=== PATIENT | female | born 1945 | race Caucasian/White ===

== ENCOUNTER 2020-10-26 17:30 | Inpatient (IN) | payer MEDICARE, SELFPAY ==
[2020-10-26 18:16] VITALS: PULSE 80; RESP 18; O2SAT 98; BMI 27.6
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
[2020-10-26 20:30] VITALS: BP 122/52; BP 137/38; PULSE 68; PULSE 69
[2020-10-26] MEDS: MELATONIN 3 MG TABLET PO (21:49)
[2020-10-26] MEDS: Gabapentin 300 MG Capsule PO (21:49)
[2020-10-26] MEDS: cloNIDine HCl 0.1 MG Tablet PO (21:50)
[2020-10-26] MEDS: QUEtiapine 25 MG Tablet PO (21:50)
[2020-10-27 06:45] LABS: Absolute Lymphocyte Count 1.86 X10^3/uL (0.83-4.51); Absolute Neutrophil Count 2.7 X10^3/uL (2.0-7.7); Basophil# 0.03 X10^3/uL; Basophil% 0.5 % (0-1); Eosinophil# 0.24 X10^3/uL; Eosinophils% 4.4 % (0-5); Hematocrit 33.9 % (37-47); Hemoglobin 10.6 g/dL (12.0-15.0); Lymphocyte # 1.86 X10^3/ul (0.83-4.51); Lymphocyte % 33.9 % (19-41); Mean Corp Hgb Conc 31.3 g/dL (32-36); Mean Corpuscular Volume 92.9 fL (81-99); Mean Platelet Vol. 10.2 fl (6.2-12.0); Monocyte# 0.63 X10^3/uL; Monocyte% 11.5 % (0-10); NRBC Flagged by Analyzer 0 % (0-5); Neutrophil % 49.3 % (47-70); Platelet Count 367 K/mm3 (150-450); RBC Distribution Width CV 14.1 % (11.6-14.6); RBC Distribution Width SD 47.8 fl (35.1-43.9); Red Blood Count 3.65 M/mm3 (4.2-5.4); White Blood Count 5.5 K/mm3 (4.4-11.0)
[2020-10-27] MEDS: Aspirin 81 MG TAB.CHEW PO (07:02)
[2020-10-27] MEDS: Enoxaparin 30 MG/0.3 ML Syringe SC (07:02)
[2020-10-27] MEDS: Senna/Docusate Sodium 1 Tablet PO ×2 (07:02→17:23)
[2020-10-27] MEDS: Atorvastatin Calcium 20 MG Tablet PO (07:02)
[2020-10-27] MEDS: Gabapentin 300 MG Capsule PO ×3 (07:02→21:02)
[2020-10-27] MEDS: Pantoprazole Sodium 40 MG Tablet PO (07:02)
[2020-10-27] MEDS: Nystatin Powder 15gm Bottle 1 APPLIC TOPICAL ×2 (07:03→17:24)
[2020-10-27] MEDS: Polyethylene Glycol 3350 17 GM PACKET PO (07:04)
[2020-10-27] MEDS: Multivitamins,Ther W-Minerals Tablet 2 TABLET PO (07:05)
--- NOTE | 2020-10-27 07:40 | NURSING ---
Ensure not ordered, pt states she can only drink water, nothing else.
[2020-10-27 07:46] LABS: Anion Gap 8 (5-15); BUN 16 mg/dL (7-18); Calcium,Total 8.8 mg/dL (8.5-10.1); Chloride 107 mmol/L (98-107); Creatinine, Serum 0.89 mg/dL (0.55-1.02); EST Glomerular Filtration Rate 66 mL/min (>60); Est Glom Filt Rate - Afr Amer 80 mL/min (>60); Estimated Creatinine Clearance 43.86 ml/min; Glucose 105 mg/dL (74-106); Potassium 3.3 mmol/L (3.5-5.1); Sodium Level 140 mmol/L (136-145)
[2020-10-27] MEDS: Mag Hydrox/Al Hydrox/Simeth 30 ML UDC PO (10:40)
[2020-10-27] MEDS: Potassium Chloride Oral Tablet 20 MEQ PO (11:34)
[2020-10-27] MEDS: Tuberculin,Purif.prot.deriv. 50 TU/ML Vial 5 ML ID (11:34)
[2020-10-27] MEDS: cloNIDine HCl 0.1 MG Tablet PO ×2 (14:28→21:02)
[2020-10-27 14:29] VITALS: BP 126/50; PULSE 74; RESP 16; TEMP 36.9; O2SAT 95
--- NOTE | 2020-10-27 15:14 | NURSING ---
Spoke with pt and spouse, they both stated pt takes Vit D3 50,000 units every 10 days, not every week. Dr. Starkey notified.
[2020-10-27] MEDS: Carvedilol 25 MG Tablet PO (17:23)
[2020-10-27] MEDS: Lacosamide 100 MG Tablet PO (17:23)
[2020-10-27] MEDS: MELATONIN 3 MG TABLET PO (21:02)
[2020-10-27] MEDS: QUEtiapine 25 MG Tablet PO (21:02)
--- NOTE | 2020-10-28 01:17 | NURSING ---
Pt taken to bathroom per COMPUTER ANALYST SUPERVISOR. Unable to get oob without assist compared to ability to complete position change from lying to sitting with supervision earlier in the shift. Gait unsteady, poor coordination, mod to max cueing required when ambulating to bathroom.
[2020-10-28 05:16] VITALS: BP 125/56; PULSE 60; RESP 16; TEMP 36.7; O2SAT 94
[2020-10-28] MEDS: Gabapentin 300 MG Capsule PO ×3 (05:20→21:03)
[2020-10-28] MEDS: Nystatin Powder 15gm Bottle 1 APPLIC TOPICAL ×2 (05:20→16:52)
[2020-10-28] MEDS: Lisinopril 10 MG Tablet PO (05:21)
[2020-10-28] MEDS: Pantoprazole Sodium 40 MG Tablet PO (05:21)
[2020-10-28] MEDS: Atorvastatin Calcium 20 MG Tablet PO (05:21)
[2020-10-28] MEDS: Senna/Docusate Sodium 1 Tablet PO ×2 (05:21→16:49)
[2020-10-28] MEDS: cloNIDine HCl 0.1 MG Tablet PO ×2 (05:21→21:03)
[2020-10-28] MEDS: Enoxaparin 30 MG/0.3 ML Syringe SC (05:21)
[2020-10-28] MEDS: Polyethylene Glycol 3350 17 GM PACKET PO (05:22)
[2020-10-28] MEDS: Carvedilol 25 MG Tablet PO ×2 (05:23→16:49)
[2020-10-28] MEDS: Lacosamide 100 MG Tablet PO ×2 (05:26→16:52)
[2020-10-28 06:02] LABS: Anion Gap 5 (5-15); BUN 15 mg/dL (7-18); BUN/Creat Ratio 19.6 RATIO (10-20); Calcium,Total 8.5 mg/dL (8.5-10.1); Chloride 109 mmol/L (98-107); Creatinine, Serum 0.77 mg/dL (0.55-1.02); EST Glomerular Filtration Rate 78 mL/min (>60); Est Glom Filt Rate - Afr Amer 95 mL/min (>60); Estimated Creatinine Clearance 39.04 ml/min; Glucose 96 mg/dL (74-106); Potassium 3.6 mmol/L (3.5-5.1); Sodium Level 141 mmol/L (136-145)
--- NOTE | 2020-10-28 07:01 | NURSING ---
Addendum entered by Mini Frederick 10/28/20 07:27: Called to update on pt. Addendum entered by Norma Crystal 10/28/20 07:08: Report given to ER nurse, Minal. Original Note: Called to pt's bathroom- became unresponsive. Verbal stimulation ineffective to arouse pt. Vitals obtained- BP 104/65, P- 89. Radial pulse to rt arm thready. Color dodson, ashen. Skin moist. Upper extremities flaccid. Few jerking motions noted to upper body. Rapid response called. Three fuel cell test engineer and a physician present. Symptoms have not improved. Pt transported to ER per ORNAMENTAL METAL WORKER APPRENTICE. Report given to Maxwell
[2020-10-28 07:05] LABS: Bedside Glucose 137 mg/dL (70-110)
[2020-10-28 07:10] VITALS: BP 104/65; PULSE 89
[2020-10-28 10:00] VITALS: PULSE 69; O2SAT 92
[2020-10-28] MEDS: Aspirin 81 MG TAB.CHEW PO (13:49)
[2020-10-28] MEDS: Multivitamins,Ther W-Minerals Tablet 2 TABLET PO (13:49)
--- NOTE | 2020-10-28 14:17 | NURSING ---
Pt came back from ER with new order for Keflex q6hrs for UTI. Pt A&Ox3 pleasant, talkative and cooperative with care.
[2020-10-28 14:20] VITALS: BP 107/33; PULSE 69; RESP 18; TEMP 36.7; O2SAT 92
[2020-10-28] MEDS: Cephalexin 500 MG Capsule PO ×2 (16:48→23:38)
[2020-10-28] MEDS: Mag Hydrox/Al Hydrox/Simeth 30 ML UDC PO (16:52)
[2020-10-28] MEDS: Ondansetron ODT 4 MG Tablet PO (20:58)
[2020-10-28] MEDS: Acetaminophen 500 MG Tablet 1000 MG PO (21:03)
[2020-10-28] MEDS: MELATONIN 3 MG TABLET PO (21:03)
[2020-10-28] MEDS: QUEtiapine 25 MG Tablet PO (21:03)
[2020-10-28 21:04] VITALS: BP 124/53; PULSE 70; RESP 18; O2SAT 95
[2020-10-29 06:20] VITALS: BP 146/48; PULSE 61; RESP 18; TEMP 36.9; O2SAT 91
[2020-10-29] MEDS: cloNIDine HCl 0.1 MG Tablet PO ×3 (06:28→22:32)
[2020-10-29] MEDS: Carvedilol 25 MG Tablet PO ×2 (06:28→17:36)
[2020-10-29] MEDS: Cephalexin 500 MG Capsule PO ×4 (06:28→23:00)
[2020-10-29] MEDS: Atorvastatin Calcium 20 MG Tablet PO (06:29)
[2020-10-29] MEDS: Senna/Docusate Sodium 1 Tablet PO ×2 (06:29→17:36)
[2020-10-29] MEDS: Nystatin Powder 15gm Bottle 1 APPLIC TOPICAL ×2 (06:29→17:36)
[2020-10-29] MEDS: Gabapentin 300 MG Capsule PO ×3 (06:29→22:32)
[2020-10-29] MEDS: Enoxaparin 30 MG/0.3 ML Syringe SC (06:29)
[2020-10-29] MEDS: Pantoprazole Sodium 40 MG Tablet PO (06:29)
[2020-10-29] MEDS: Lacosamide 100 MG Tablet PO ×2 (06:30→17:42)
[2020-10-29] MEDS: Lisinopril 10 MG Tablet PO (06:30)
[2020-10-29] MEDS: Acetaminophen 500 MG Tablet 1000 MG PO ×2 (06:30→20:12)
[2020-10-29] MEDS: Ondansetron ODT 4 MG Tablet PO ×2 (06:31→19:16)
[2020-10-29] MEDS: Multivitamins,Ther W-Minerals Tablet 2 TABLET PO (08:32)
[2020-10-29] MEDS: Aspirin 81 MG TAB.CHEW PO (08:32)
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
[2020-10-29 14:23] VITALS: BP 172/62; PULSE 65; RESP 14; TEMP 36.4; O2SAT 96
[2020-10-29] MEDS: Mag Hydrox/Al Hydrox/Simeth 30 ML UDC PO (19:53)
[2020-10-29 22:30] VITALS: BP 141/54; PULSE 60; RESP 17; O2SAT 93
[2020-10-29] MEDS: MELATONIN 3 MG TABLET PO (22:31)
[2020-10-29] MEDS: QUEtiapine 25 MG Tablet PO (22:32)
[2020-10-30] MEDS: Enoxaparin 30 MG/0.3 ML Syringe SC (04:56)
[2020-10-30] MEDS: Pantoprazole Sodium 40 MG Tablet PO (04:57)
[2020-10-30] MEDS: Nystatin Powder 15gm Bottle 1 APPLIC TOPICAL ×2 (04:58→17:05)
[2020-10-30 05:02] VITALS: BP 93/46; PULSE 60; RESP 16; TEMP 36.4; O2SAT 93
--- NOTE | 2020-10-30 05:06 | NURSING ---
pT REFUSED AM MEDS. PT SAID WE ARE TRYING TO POISON HER. ATTEMPTED TO EDUCATED PT AND SHOW HER THE MEDS WRAPPERS BUT STILL REFUSED.
--- NOTE | 2020-10-30 05:09 | NURSING ---
PT REFUSED HER MEDS THIS AM
[2020-10-30] MEDS: Multivitamins,Ther W-Minerals Tablet 2 TABLET PO (07:45)
[2020-10-30] MEDS: Aspirin 81 MG TAB.CHEW PO (07:45)
--- NOTE | 2020-10-30 08:00 | PCM.PN.RX ---
Progress Note - Pharmacy Subjective: TCU Admission Objective: Allergies acetaminophen [From Percocet] Allergy (Verified 10/28/20 07:06) Other amlodipine Allergy (Verified 10/28/20 07:06) Upset Stomach amoxicillin Allergy (Verified 10/28/20 07:06) Diarrhea metoclopramide Allergy (Verified 10/28/20 07:06) Upset Stomach oxycodone [From Percocet] Allergy (Verified 10/28/20 07:06) Other carvedilol Adverse Reaction (Verified 10/28/20 07:06) Shortness of breath Current Medications Generic Name Dose Route Start Last Admin Trade Name Freq PRN Reason Stop Dose Admin Acetaminophen 1,000 mg 10/26/20 18:56 10/29/20 20:12 Acetaminophen 500 Mg Tablet PO 1,000 mg Q6H PRN PRN Administration Pain Score 1-10 Al Hydroxide/Mg Hydroxide 30 ml 10/26/20 19:36 10/29/20 19:53 Mag Hydrox/Al Hydrox/Simeth 30 Ml Udc PO 30 ml Q6H PRN PRN Administration GERD Aspirin 81 mg 10/27/20 08:00 10/30/20 07:45 Aspirin 81 Mg Tab.Chew PO 81 mg DAILYCM BERNA[facility]TE Administration Atorvastatin Calcium 20 mg 10/27/20 06:00 10/30/20 05:08 Atorvastatin Calcium 20 Mg Tablet PO Not Given DAILY BERNADETTE Bisacodyl 10 mg 10/26/20 18:55 Bisacodyl 5 Mg Tablet PO DAILY PRN PRN Constipation Carvedilol 25 mg 10/27/20 06:00 10/30/20 05:08 Carvedilol 25 Mg Tablet PO Not Given BID BERNADETTE Cephalexin 500 mg 10/28/20 18:00 10/30/20 05:06 Cephalexin 500 Mg Capsule PO 10/31/20 12:01 Not Given Q6 BERNADETTE Clonidine 0.1 mg 10/26/20 22:00 10/30/20 05:00 Clonidine Hcl 0.1 Mg Tablet PO Not Given Q8 BERNADETTE Enoxaparin Sodium 30 mg 10/27/20 06:00 10/30/20 04:56 Enoxaparin 30 Mg/0.3 Ml Syringe SC 30 mg DAILY@0600 BERNADETTE Administration Ergocalciferol 50,000 unit 10/31/20 06:00 Ergocalciferol 50,000 Unit Capsule PO Q10D BERNA[facility]TE Gabapentin 300 mg 10/26/20 22:00 10/30/20 05:08 Gabapentin 300 Mg Capsule PO Not Given TID [facility] Lacosamide 100 mg 10/28/20 18:00 10/30/20 05:05 Lacosamide 100 Mg Tablet PO Not Given BID [facility] Lisinopril 10 mg 10/27/20 06:00 10/30/20 04:59 Lisinopril 10 Mg Tablet PO Not Given DAILY [facility] Melatonin 3 mg 10/26/20 22:00 10/29/20 22:31 Melatonin 3 Mg Tablet PO 3 mg QHS [facility] Administration Multivitamins/Minerals 2 tablet 10/27/20 08:00 10/30/20 07:45 Multivitamins,Ther W-Minerals Tablet PO 2 tablet DAILY@0800 [facility] Administration Nystatin 1 applic 10/27/20 06:00 10/30/20 04:58 Nystatin Powder 15gm Bottle TOPICAL 1 applic BID [facility] Administration Protocol Ondansetron HCl 4 mg 10/26/20 19:33 10/29/20 19:16 Ondansetron Odt 4 Mg Tablet PO 4 mg Q8H PRN PRN Administration NAUSEA/VOMITING Pantoprazole Sodium 40 mg 10/27/20 06:00 10/30/20 04:57 Pantoprazole Sodium 40 Mg Tablet PO 40 mg DAILY [facility] Administration Polyethylene Glycol 17 gm 10/27/20 06:00 10/30/20 04:58 Polyethylene Glycol 3350 17 Gm Packet PO Not Given DAILY [facility] Quetiapine Fumarate 25 mg 10/26/20 22:00 10/29/20 22:32 Quetiapine 25 Mg Tablet PO 25 mg QHS [facility] Administration Senna/Docusate Sodium 1 tablet 10/27/20 06:00 10/30/20 05:08 Senna/Docusate Sodium 1 Tablet PO Not Given BID [facility] Throat Lozenges 1 lozenge 10/26/20 18:33 Benzocaine/Menthol 1 Lozenge MUCOUS MEM Q2H PRN PRN Sore Throat Tuberculin PPD 0.1 ml 11/03/20 10:00 Tuberculin,Purif.Prot.Deriv. 50 Tu/Ml Vial ID 11/03/20 10:01 X1 ONE Problem List (Last Reviewed 10/28/20 @ 07:[address] Jl Roberts, DO) Debility (Acute) Weakness (Acute) Urinary tract infection (Acute) Hypokalemia (Acute) Hypertension (Chronic) Chronic kidney disease, stage 3a (Chronic) Seizure disorder (Acute) Recurrent urinary tract infection (Acute) Stroke (Acute) Vascular dementia (Acute) Gastroesophageal reflux disease (Acute) Gastroparesis (Acute) Hyperlipidemia (Acute) Cannabis abuse (Acute) Benzodiazepine dependence (Acute) Vital Signs Temp Pulse Resp BP Pulse Ox 97.6 F L 60 16 93/46 L 93 10/30/20 05:02 10/30/20 05:02 10/30/20 05:02 10/30/20 05:02 10/30/20 05:02 Oxygen Delivery Method Room Air Weight: 72.745 kg Body Mass Index (BMI) 27.6 Sodium 141 mmol/L (136-145) 10/28/20 05:10 Potassium 3.6 mmol/L (3.5-5.1) 10/28/20 05:10 Chloride 109 mmol/L (98-107) H 10/28/20 05:10 Carbon Dioxide 27.0 mmol/L (21.0-32.0) 10/28/20 05:10 Anion Gap 5 (5-15) 10/28/20 05:10 BUN 15 mg/dL (7-18) 10/28/20 05:10 Creatinine 0.77 mg/dL (0.55-1.02) 10/28/20 05:10 Est GFR (MDRD) Af Amer 95 mL/min (>60) 10/28/20 05:10 Est GFR (MDRD) Non-Af 78 mL/min (>60) 10/28/20 05:10 BUN/Creatinine Ratio 19.6 RATIO (10-20) 10/28/20 05:10 Glucose 96 mg/dL (74-106) 10/28/20 05:10 Assessment/Plan: 1. Pain: acetaminophen 1000mg PO Q6H PRN pain (1-10). Please continue to monitor pain and PRN usage. 2. DVT prophylaxis: enoxaparin 40mg SC daily. Please continue to monitor renal function, platelets (last 276,000), hemoglobin (last 11.3g/dL), S/S of bleeding/ DVT. 3. Stroke: aspirin 81mg PO daily. Please continue to monitor S/S of bleeding and stroke. *4. Hyperlipidemia: atorvastatin 20mg PO daily. Please consider ordering lipid panel, no recent history on profile. Please continue to monitor muscle pain.? 5. Hypertension: carvedilol 25mg PO BID, lisinopril 10mg PO daily, clonidine 0.1mg PO Q8. Please continue to monitor BP (last 93/46), HR (last 60), potassium (last 3.6 mmol/L), and renal function. 6. Neuropathic pain: gabapentin 300mg PO TID. Please continue to monitor renal function and S/S of neuropathic pain.? 7. Seizure disorder:? lacosamide 100mg PO BID. Please continue to monitor S/S of seizures.? 8. Insomnia: melatonin 3mg PO QHS. Please continue to monitor insomnia. 9. Nausea: ondansetron ODT 4mg PO Q8H PRN nausea. Please continue to monitor nausea, PRN usage, and HR (last 89).? 10. GERD: pantoprazole 40mg PO daily. Please continue to monitor S/S of GERD. 11. Indigestion: Mylanta II 30ml PO Q6H PRN indigestion. Please continue to monitor indigestion and PRN usage. 12. Sore throat: Cepacol lozenge 1 Q2H PRN sore throat. Please continue to monitor sore throat and PRN usage. *13. Vitamin D deficiency/Nutrition: ergocalciferol 50,000units PO [id number] and multivitamin with minerals 2T PO daily. Please consider ordering a vitamin D level. Patient does not have one in the chart. Thanks.? 14. UTI: cephalexin 500mg PO Q6 thru 10/31/20. Please continue to monitor for S/S of infection and diarrhea. Thanks. Psychotropic Medications: 1. Behavior disorder secondary vascular dementia: quetiapine 25mg PO QHS. Please continue to monitor renal function and S/S of behavior disorder. Please see physician note regarding GDR. Unnecessary Medications: None *Bowel Regimen: Miralax 17gm PO daily, senna/docusate 1T PO BID, and bisacodyl 10mg PO daily PRN constipation. Please continue to monitor constipation and PRN usage.?Patient has refused 2/4 doses of Miralax. Please consider changing to PRN. Thanks. Date of Note:: 10/30/20
[2020-10-30 10:00] VITALS: PULSE 66; RESP 16; O2SAT 96
[2020-10-30] MEDS: Cephalexin 500 MG Capsule PO ×2 (11:52→17:05)
[2020-10-30] MEDS: Gabapentin 300 MG Capsule PO ×2 (13:47→20:06)
[2020-10-30] MEDS: cloNIDine HCl 0.1 MG Tablet PO ×2 (13:47→20:07)
[2020-10-30 13:48] VITALS: BP 156/55; PULSE 67; RESP 18; TEMP 36.6; O2SAT 96
--- NOTE | 2020-10-30 15:32 | CASEMGMT ---
Social Work IDT met with patient and via conference call for care plan meeting. Discussed patient's progress in therapy and nursing. Pt progressing well. ST evaled and identified areas to work on with cognition. Pt is out of isolation 11/09. Explained [employer] with NRD 10/31 and continued stay is not guaranteed. Inquired about DC goal. Pt states she wants to go home with . unsure if he can care for her at home. did confirm there are aides 2-3x/wk for 7 hrs/ day. assists with meds and finances. Inquired about children for SW to contact. Pt states she speaks with youngest son Jacob the most whom lives in [place] and provided contact info. Pt states she would like her HCPOA to be changed from to son as she does not like the decisions has made for her recently - like putting her in 7 different places. Explained until pt is unable to make her own decisions, POA does not take affect. Pt state oh no, he doesn't realize that and he isn't going to like that when you tell him. SW assured to explain to and Jacob. contacted SW after meeting to speak in private. reiterated he cannot care for her at home and wants her in a SNF. He was looking into [facility]. Explained IDT will have to determine pt's competence but as long as she can make her own decisions, she can choose her DC plan and she expressed wanting to DC home. expressed understanding. states she's always mad at me for something - she doesn't have the best memory. Explained SNF would be private pay or [facility]. states they are over resources for [facility] and will be able to pay privately longer than he can pay for assistance at home. SW offered to speak with pt again to discuss SNF option. appreciative. Contacted son Jacob to inquire about pt's baseline memory, relationship between her and and 's memory. Son states he last saw pt about two weeks ago, and speaks to her on the phone about every other day. He explained 's memory is spot on. He has been in his life since he was 14 years old and he has never raised his voice or laid hands on children but especially patient. He explained pt tends to be manipulative, dramatic and enjoys the attention. He has noticed pt's memory has declined and is not always accurate. He has noted several times in the last month she has had hallucinations/delusions and he redirects her. He feels a SNF would be beneficial for pt because she likes the attention, the care and socialization and agrees cannot care for her anymore. Inquired about him becoming POA- son agreed. Thanked son for information and to call with any questions. Son appreciative as well. SW to follow up with pt on DC choice and IDT to discuss her competence. SW to continue to follow. Roselia Bueno, RECEIVING DOCK CHECKER [employer]GERY TECH
[2020-10-30] MEDS: Lacosamide 100 MG Tablet PO (17:04)
[2020-10-30] MEDS: Carvedilol 25 MG Tablet PO (17:05)
[2020-10-30] MEDS: Senna/Docusate Sodium 1 Tablet PO (17:05)
[2020-10-30] MEDS: Acetaminophen 500 MG Tablet 1000 MG PO (18:22)
[2020-10-30] MEDS: QUEtiapine 25 MG Tablet PO (20:06)
[2020-10-30] MEDS: MELATONIN 3 MG TABLET PO (20:06)
[2020-10-31] MEDS: Cephalexin 500 MG Capsule PO ×3 (00:17→11:34)
[2020-10-31 05:50] VITALS: BP 144/56; PULSE 78; RESP 17; TEMP 36.4; O2SAT 93
[2020-10-31] MEDS: Enoxaparin 40 MG/0.4 ML Syringe SC (05:52)
[2020-10-31] MEDS: Polyethylene Glycol 3350 17 GM PACKET PO (05:52)
[2020-10-31] MEDS: Gabapentin 300 MG Capsule PO ×3 (05:53→22:08)
[2020-10-31] MEDS: Pantoprazole Sodium 40 MG Tablet PO (05:53)
[2020-10-31] MEDS: Carvedilol 25 MG Tablet PO ×2 (05:53→17:33)
[2020-10-31] MEDS: Atorvastatin Calcium 20 MG Tablet PO (05:53)
[2020-10-31] MEDS: Lisinopril 10 MG Tablet PO (05:53)
[2020-10-31] MEDS: cloNIDine HCl 0.1 MG Tablet PO ×3 (05:53→22:08)
[2020-10-31] MEDS: Senna/Docusate Sodium 1 Tablet PO ×2 (05:53→17:35)
[2020-10-31] MEDS: Lacosamide 100 MG Tablet PO ×2 (05:56→17:37)
[2020-10-31] MEDS: Nystatin Powder 15gm Bottle 1 APPLIC TOPICAL ×2 (05:58→17:33)
[2020-10-31] MEDS: Multivitamins,Ther W-Minerals Tablet 2 TABLET PO (09:01)
[2020-10-31] MEDS: Aspirin 81 MG TAB.CHEW PO (09:01)
[2020-10-31] MEDS: Acetaminophen 500 MG Tablet 1000 MG PO ×2 (10:13→22:18)
[2020-10-31] MEDS: Ensure Clear 120 ML Liquid PO ×2 (11:33→17:33)
[2020-10-31 11:34] VITALS: BP 94/66; PULSE 67
--- NOTE | 2020-10-31 13:20 | CASEMGMT ---
BIMS and PHQ9 interviews completed on this date for MDS assessment. RADHA Telles
[2020-10-31 13:34] VITALS: BP 128/56; PULSE 64; RESP 16; TEMP 36.2; O2SAT 93
--- NOTE | 2020-10-31 16:08 | NURSING ---
brought in medic alert silver bracelet per pt request, placed on LT wrist.
[2020-10-31] MEDS: MELATONIN 3 MG TABLET PO (22:08)
[2020-10-31] MEDS: QUEtiapine 25 MG Tablet PO (22:08)
[2020-11-01 01:00] VITALS: BP 151/54; PULSE 68; RESP 18; TEMP 36.9; O2SAT 94
[2020-11-01] MEDS: Enoxaparin 40 MG/0.4 ML Syringe SC (05:34)
[2020-11-01] MEDS: Cephalexin 500 MG Capsule PO ×2 (05:34→17:20)
[2020-11-01] MEDS: Carvedilol 25 MG Tablet PO ×2 (05:35→17:20)
[2020-11-01] MEDS: Gabapentin 300 MG Capsule PO ×3 (05:35→22:00)
[2020-11-01] MEDS: cloNIDine HCl 0.1 MG Tablet PO ×3 (05:35→22:00)
[2020-11-01] MEDS: Ensure Clear 120 ML Liquid PO ×3 (05:35→17:20)
[2020-11-01] MEDS: Lisinopril 10 MG Tablet PO (05:35)
[2020-11-01] MEDS: Pantoprazole Sodium 40 MG Tablet PO (05:35)
[2020-11-01] MEDS: Atorvastatin Calcium 20 MG Tablet PO (05:35)
[2020-11-01] MEDS: Senna/Docusate Sodium 1 Tablet PO ×2 (05:35→17:22)
[2020-11-01 05:51] VITALS: BP 124/64; PULSE 62; RESP 18; TEMP 36.3; O2SAT 93
[2020-11-01] MEDS: Nystatin Powder 15gm Bottle 1 APPLIC TOPICAL ×2 (06:30→17:23)
[2020-11-01] MEDS: Polyethylene Glycol 3350 17 GM PACKET PO (06:30)
[2020-11-01] MEDS: Lacosamide 100 MG Tablet PO ×2 (06:34→17:28)
[2020-11-01] MEDS: Aspirin 81 MG TAB.CHEW PO (08:54)
[2020-11-01] MEDS: Multivitamins,Ther W-Minerals Tablet 2 TABLET PO (08:54)
[2020-11-01] MEDS: Acetaminophen 500 MG Tablet 1000 MG PO ×2 (08:54→17:20)
--- NOTE | 2020-11-01 09:31 | CASEMGMT ---
Addendum entered by Roselia Bueno 11/01/20 11:42: Contacted Samanta at [facility] of DC plan and date. Addendum entered by Roselia Bueno 11/01/20 11:18: [facility] accepted pt. Insurance issued LCD 11/04, DC 11/05. Spoke with and pt and both agreeable. would like transport scheduled and okay to pay privately. PASRR completed. W/C transport scheduled through [facility] for 12 pm. Plan: DC to [facility] 11/05, nonskilled with Part B therapies Original Note: Social Work Spoke with patient about DC plans. Pt agrees she is not ready to DC home and would not be able to lift her. She having back pain today and did not keep eyes open during conversation with this worker. Nursing aware of pain. Explained looking into SNF for her to continue with more therapy and nursing care. Pt agreed. Read list of possible SNF options and their star ratings, as pt has poor vision. Pt inquired about 's wishes - he spoke ti [facility] and prefers pt transfer there. Pt agreeable. Referral made to [facility]. Unsure if pt can be placed over holiday weekend. Still awaiting outcome from insurance. SW will continue to follow for DC plans. Pt would admit private pay with [employer] Part B therapies. Roselia Bueno, OSBALDO GARCIAW
[2020-11-01 10:00] VITALS: PULSE 63; RESP 16
[2020-11-01] MEDS: Mag Hydrox/Al Hydrox/Simeth 30 ML UDC PO (12:45)
--- NOTE | 2020-11-01 13:37 | DS.PCM_ITS ---
Providers Date of Admission: 10/26/20 Reason For Visit: WEAKNESS Diagnosis Discharge Diagnosis (1) Debility: Status: Acute Code(s): R53.81 - Other malaise (2) Weakness: Status: Acute Code(s): R53.1 - Weakness (3) Urinary tract infection: Status: Acute Code(s): N39.0 - Urinary tract infection, site not specified (4) Hypokalemia: Status: Acute Code(s): E87.6 - Hypokalemia (5) Hypertension: Status: Chronic Code(s): I10 - Essential (primary) hypertension (6) Chronic kidney disease, stage 3a: Status: Chronic Code(s): N18.31 - Chronic kidney disease, stage 3a (7) Seizure disorder: Status: Acute Code(s): G40.909 - Epilepsy, unspecified, not intractable, without status epilepticus (8) Recurrent urinary tract infection: Status: Acute Code(s): N39.0 - Urinary tract infection, site not specified (9) Stroke: Status: Acute Code(s): I63.9 - Cerebral infarction, unspecified (10) Vascular dementia: Status: Acute Code(s): F01.50 - Vascular dementia without behavioral disturbance (11) Gastroesophageal reflux disease: Status: Acute Code(s): K21.9 - Gastro-esophageal reflux disease without esophagitis (12) Gastroparesis: Status: Acute Code(s): K31.84 - Gastroparesis (13) Hyperlipidemia: Status: Acute Code(s): E78.5 - Hyperlipidemia, unspecified (14) Cannabis abuse: Status: Acute Code(s): F12.10 - Cannabis abuse, uncomplicated (15) Benzodiazepine dependence: Status: Acute Code(s): F13.20 - Sedative, hypnotic or anxiolytic dependence, uncomplicated Medications at Discharge Home Medications Thera M Plus (ferrous fumarat) 2 tab PO DAILY 10/26/20 aspirin 81 mg PO DAILY 10/26/20 atorvastatin [Lipitor] 20 mg PO DAILY 10/26/20 carvedilol 25 mg PO BID 10/26/20 clonidine HCl 0.1 mg PO Q8 10/26/20 gabapentin 300 mg PO TID 10/26/20 lisinopril 10 mg PO DAILY 10/26/20 ondansetron HCl [Zofran] 4 mg PO Q8H 10/26/20 pantoprazole [Protonix] 40 mg PO DAILY 10/26/20 quetiapine [Seroquel] 25 mg PO QHS 10/26/20 acetaminophen 1,000 mg PO Q6H PRN PRN #0 tab 11/01/20 alum-mag hydroxide-simeth [Mag-Al Plus Extra Strength] 30 ml PO Q6H PRN PRN #0 ml 11/01/20 benzocaine-menthol [Cepacol Sore Throat (raulito-men)] 1 geo MUCOUS MEMBRANE Q2H PRN PRN #0 ea 11/01/20 ergocalciferol (vitamin D2) [Vitamin D2] 1.25 mg PO Q10D@0600 #0 cap 11/01/20 lacosamide [Vimpat] 100 mg PO BID #0 tab 11/01/20 melatonin 3 mg PO QHS #0 tab 11/01/20 nystatin [Nyamyc] 1 applic TOPICAL BID #0 g 11/01/20 Hospital Course Operations None Procedures None Summary of Care Provided Minutes Spent on Discharge: 35 Hospital Course: 75 year old female with below past medical history hospitalized for acute encephalopathy secondary to urinary tract infection, seizure disorder, admitted to TCU with debility, here for rehabilitation, strengthening, prior to discharge home with . Discharge to [facility] 11/05/2020, non skilled, Part B Therapies. Physical Exam Const alert and oriented x3 General Appearance: cooperative HEENT normocephalic Eyes PERRL and EOMs intact bilaterally Neck supple, no JVD and no carotid bruits Resp normal respiratory effort, normal air movement and clear to auscultation bilaterally Cardio regular rate and regular rhythm GI normal to inspection, nondistended, normoactive bowel sounds, non-tender and non-distended Extremity normal capillary refill General Extremity: Negative for edema Skin no rashes or lesions noted General Skin Exam: no breakdown Psych affect normal Appearance: appropriate ABG / Lab / Microbiology Data Result Diagrams: 10/27/20 06:39 10/28/20 05:10 Microbiology: Microbiology 10/27/20 14:10 Mucosa - Nose SARS-CoV-2 Antigen (Rapid) - Final D/C Instructions Discharge Diet: No restrictions Discharge Activity: Return to Normal Activity, May Shower and Use Walker Weight Bearing Status: Weight bearing as tolerated Call your doctor if you observe: Fever of 101 or Higher, Inability to urinate, Inability to have a bowel movement, Shortness of breath, Fainting spells, Chest pain and Uncontrolled pain Additional Instructions: Discharge to [facility] 11/05/2020, non skilled, Part B Therapies. Meaningful Use Info Meaningful Use Diagnoses (Choose all that apply): None applicable Discharge Plan Admission Admit Date/Time: 10/26/20 17:30 Primary Reason for Your Visit: Debility Attending Provider: Serge Starkey Chi Instructions Additional Instructions / Restrictions: Discharge to [facility] 11/05/2020, non skilled, Part B Therapies. Discharge Orders/Prescriptions Prescriptions: New melatonin 3 mg Tablet 3 mg PO QHS Qty: 0 RF: 0 acetaminophen 500 mg Tablet 1,000 mg PO Q6H PRN PRN (Reason: Pain Score 1-10) Qty: 0 RF: 0 ergocalciferol (vitamin D2) [Vitamin D2] 1,250 mcg (50,000 unit) Capsule 1.25 mg PO Q10D@0600 Qty: 0 RF: 0 nystatin [Nyamyc] 100,000 unit/gram Powder 1 applic topical BID Qty: 0 RF: 0 alum-mag hydroxide-simeth [Mag-Al Plus Extra Strength] 400-400-40 mg/5 mL Suspension 30 ml PO Q6H PRN PRN (Reason: GERD) Qty: 0 RF: 0 Vimpat 100 mg Tablet 100 mg PO BID Qty: 0 RF: 0 Cepacol Sore Throat (raulito-men) 15-3.6 mg Lozenge 1 geo mucous membrane Q2H PRN PRN (Reason: Sore Throat) Qty: 0 RF: 0 Continued quetiapine [Seroquel] 25 mg Tablet 25 mg PO QHS RF: 0 carvedilol 25 mg Tablet 25 mg PO BID RF: 0 atorvastatin [Lipitor] 20 mg Tablet 20 mg PO DAILY RF: 0 ondansetron HCl [Zofran] 4 mg Tablet 4 mg PO Q8H RF: 0 lisinopril 10 mg Tablet 10 mg PO DAILY RF: 0 gabapentin 300 mg Capsule 300 mg PO TID RF: 0 aspirin 81 mg Tablet,Chewable 81 mg PO DAILY RF: 0 Thera M Plus (ferrous fumarat) 9 mg iron-400 mcg Tablet 2 tab PO DAILY RF: 0 clonidine HCl 0.1 mg Tablet 0.1 mg PO Q8 RF: 0 pantoprazole [Protonix] [address] For Susp In Packet 40 mg PO DAILY RF: 0 Discontinued acetaminophen [Tylenol] 325 mg Tablet 650 mg PO Q6H PRN (Reason: Pain) RF: 0 aluminum-magnesium hydroxide 200-200 mg/5 mL Suspension 30 ml PO Q6H PRN (Reason: GERD) RF: 0 Cepacol Lozenge 1 geo MUCOUS MEMBRANE Q2H PRN PRN (Reason: Sore Throat) RF: 0 acidophilus-pectin, citrus 100 million cell-10 mg Capsule 1 cap PO DAILY RF: 0 cholecalciferol (vitamin D3) 1,250 mcg (50,000 unit) Tablet 1,250 mcg PO QWEEK RF: 0 lacosamide 100 mg Tablet 100 mg PO BID RF: 0 cephalexin [cephalexin] 500 MG capsule 500 mg PO Q6 Qty: 12 RF: 0 Disposition Disposition (needs filled in before D/C Order can be placed): NonSkilled NH/Intermed Care
--- NOTE | 2020-11-01 13:43 | TREXTCAR_ITS ---
Diet 10/26/20 18:41 Diet: Cardiac - Heart Healthy Food consistency:: Mechanical (Minced/Moist) Liquid Consistency:: Regular/Thin Dietary Modifications:: Gluten Free Diet Comments: no dairy - unless res knows she can tolerate it Routine Orders/Code Status Suppository Type: Dulcolax 10mg Suppository Frequency: Daily PRN Code Status: Full Code Therapies Weight Bearing: Weight bearing as tolerated Extremity Affected:: Bilateral Lower Physical Therapy: Eval and Treat Occupational Therapy: Eval and Treat Speech Therapy: Eval and Treat Problem/Diagnosis (1) Debility: Status: Acute (2) Weakness: Status: Acute (3) Urinary tract infection: Status: Acute (4) Hypokalemia: Status: Acute (5) Hypertension: Status: Chronic (6) Chronic kidney disease, stage 3a: Status: Chronic (7) Seizure disorder: Status: Acute (8) Recurrent urinary tract infection: Status: Acute (9) Stroke: Status: Acute (10) Vascular dementia: Status: Acute (11) Gastroesophageal reflux disease: Status: Acute (12) Gastroparesis: Status: Acute (13) Hyperlipidemia: Status: Acute (14) Cannabis abuse: Status: Acute (15) Benzodiazepine dependence: Status: Acute Allergies/Procedures Done in Hospital Allergies acetaminophen [From Percocet] Allergy (Verified 10/28/20 07:06) Other amlodipine Allergy (Verified 10/28/20 07:06) Upset Stomach amoxicillin Allergy (Verified 10/28/20 07:06) Diarrhea metoclopramide Allergy (Verified 10/28/20 07:06) Upset Stomach oxycodone [From Percocet] Allergy (Verified 10/28/20 07:06) Other carvedilol Adverse Reaction (Verified 10/28/20 07:06) Shortness of breath Procedures: None Type of Care/Length of Stay Estimated LOS: More Than 30 Days Type of Care Needed: Intermediate Rehab Potential: Good Prognosis: Good Additional Orders/Day of Discharge Additional Orders: Part B therapies Day of Discharge: 11/05/20 Dietary and Speech Recommendations Dietitian Recommendations/Changes: Will continue diet of Cardiac/ gluten free/ no dairy - mechanical (minced and moist) Will order Ensure Clear 120 ml 4x/day w/ medpass for increased dorene/nutrition if consumed Discharge Plan Admission Admit Date/Time: 10/26/20 17:30 Primary Reason for Your Visit: Debility Attending Provider: Serge Starkey Chi Instructions Additional Instructions / Restrictions: Discharge to [facility] 11/05/2020, non skilled, Part B Therapies. Discharge Orders/Prescriptions Prescriptions: New melatonin 3 mg Tablet 3 mg PO QHS Qty: 0 RF: 0 acetaminophen 500 mg Tablet 1,000 mg PO Q6H PRN PRN (Reason: Pain Score 1-10) Qty: 0 RF: 0 ergocalciferol (vitamin D2) [Vitamin D2] 1,250 mcg (50,000 unit) Capsule 1.25 mg PO Q10D@0600 Qty: 0 RF: 0 nystatin [Nyamyc] 100,000 unit/gram Powder 1 applic topical BID Qty: 0 RF: 0 alum-mag hydroxide-simeth [Mag-Al Plus Extra Strength] 400-400-40 mg/5 mL Suspension 30 ml PO Q6H PRN PRN (Reason: GERD) Qty: 0 RF: 0 Vimpat 100 mg Tablet 100 mg PO BID Qty: 0 RF: 0 Cepacol Sore Throat (raulito-men) 15-3.6 mg Lozenge 1 geo mucous membrane Q2H PRN PRN (Reason: Sore Throat) Qty: 0 RF: 0 Continued quetiapine [Seroquel] 25 mg Tablet 25 mg PO QHS RF: 0 carvedilol 25 mg Tablet 25 mg PO BID RF: 0 atorvastatin [Lipitor] 20 mg Tablet 20 mg PO DAILY RF: 0 ondansetron HCl [Zofran] 4 mg Tablet 4 mg PO Q8H RF: 0 lisinopril 10 mg Tablet 10 mg PO DAILY RF: 0 gabapentin 300 mg Capsule 300 mg PO TID RF: 0 aspirin 81 mg Tablet,Chewable 81 mg PO DAILY RF: 0 Thera M Plus (ferrous fumarat) 9 mg iron-400 mcg Tablet 2 tab PO DAILY RF: 0 clonidine HCl 0.1 mg Tablet 0.1 mg PO Q8 RF: 0 pantoprazole [Protonix] [address] For Susp In Packet 40 mg PO DAILY RF: 0 Discontinued acetaminophen [Tylenol] 325 mg Tablet 650 mg PO Q6H PRN (Reason: Pain) RF: 0 aluminum-magnesium hydroxide 200-200 mg/5 mL Suspension 30 ml PO Q6H PRN (Reason: GERD) RF: 0 Cepacol Lozenge 1 geo MUCOUS MEMBRANE Q2H PRN PRN (Reason: Sore Throat) RF: 0 acidophilus-pectin, citrus 100 million cell-10 mg Capsule 1 cap PO DAILY RF: 0 cholecalciferol (vitamin D3) 1,250 mcg (50,000 unit) Tablet 1,250 mcg PO QWEEK RF: 0 lacosamide 100 mg Tablet 100 mg PO BID RF: 0 cephalexin [cephalexin] 500 MG capsule 500 mg PO Q6 Qty: 12 RF: 0 Disposition Disposition (needs filled in before D/C Order can be placed): NonSkilled [facility]
--- NOTE | 2020-11-01 13:58 | MDS.RN ---
Completed pain interview for malcom 12/03/20
[2020-11-01 14:15] VITALS: BP 101/42; PULSE 65; RESP 18; TEMP 36.7; O2SAT 96
[2020-11-01 14:43] VITALS: BP 127/58; PULSE 63
[2020-11-01] MEDS: MELATONIN 3 MG TABLET PO (22:00)
[2020-11-01] MEDS: QUEtiapine 25 MG Tablet PO (22:00)
[2020-11-02] MEDS: Acetaminophen 500 MG Tablet 1000 MG PO ×2 (02:14→08:17)
--- NOTE | 2020-11-02 03:46 | NURSING ---
Pt calls reporting burning pain to feet and legs. Also thinks brief is wet. Medicated w/ Tylenol for pain. Had Gabapentin last hs per dr order. Incontinent of lg amount of urine. Pericare and brief change completed per this nurse. Positioned in bed for comfort. Call light w/ in reach.
[2020-11-02 05:47] VITALS: BP 128/35; PULSE 62; RESP 16; TEMP 36.6; O2SAT 95
[2020-11-02] MEDS: Enoxaparin 40 MG/0.4 ML Syringe SC (05:49)
[2020-11-02] MEDS: Nystatin Powder 15gm Bottle 1 APPLIC TOPICAL ×2 (05:49→17:41)
[2020-11-02] MEDS: Gabapentin 300 MG Capsule PO ×3 (05:50→22:04)
[2020-11-02] MEDS: Pantoprazole Sodium 40 MG Tablet PO (05:50)
[2020-11-02] MEDS: Atorvastatin Calcium 20 MG Tablet PO (05:50)
--- NOTE | 2020-11-02 06:01 | NURSING ---
Communication sent to pharmacy to send additional supply of Vimpat. Signed log from previous supply sent to pharmacy per tube system. AM antihypertensives held d/t DBP of 35. Plan to inform oncoming nurse in report.
[2020-11-02 07:19] VITALS: BP 115/33; PULSE 64
--- NOTE | 2020-11-02 07:24 | NURSING ---
Addendum entered by Norma Crystal 11/02/20 07:26: Requests to go to the bathroom. This nurse assisted pt to the bathroom x1 assist, gait unsteady, lot sided neglect, moderate cueing w/ ambulation. Continent of bladder. Ambulates back to chair. No change in characteristics of gait. Pt then calls reporting dizziness. Refuses to have feet reclined in chair. Transferred to bed w/ assist of this nurse. Pt consumed approximately 100 ml of water. HOB lowered and feet elevated in addition to pillow placed under legs. Call light w/ in reach. Original Note: Pt performs an unassisted transfer from chair to bed. Becomes agitated when explaining rationale to call for assistance and becomes increasingly agitated. Active listening and emotional support provided.l
[2020-11-02] MEDS: Aspirin 81 MG TAB.CHEW PO (08:00)
[2020-11-02] MEDS: Multivitamins,Ther W-Minerals Tablet 2 TABLET PO (08:01)
--- NOTE | 2020-11-02 08:02 | NURSING ---
Requested Vimpat from pharmacy per communication note.
[2020-11-02] MEDS: Ensure Clear 120 ML Liquid PO ×2 (12:18→22:02)
[2020-11-02] MEDS: cloNIDine HCl 0.1 MG Tablet PO ×2 (14:06→22:04)
[2020-11-02 15:45] VITALS: BP 156/59; PULSE 63; RESP 16; TEMP 36.3; O2SAT 96
[2020-11-02] MEDS: Senna/Docusate Sodium 1 Tablet PO (17:41)
[2020-11-02] MEDS: Carvedilol 25 MG Tablet PO (17:41)
[2020-11-02] MEDS: Lacosamide 100 MG Tablet PO (17:41)
[2020-11-02] MEDS: MELATONIN 3 MG TABLET PO (22:03)
[2020-11-02] MEDS: QUEtiapine 25 MG Tablet PO (22:04)
[2020-11-02 22:06] VITALS: BP 152/56; PULSE 65
[2020-11-03 04:49] VITALS: BP 130/58; PULSE 68; RESP 16; TEMP 36.7; O2SAT 95
[2020-11-03] MEDS: Enoxaparin 40 MG/0.4 ML Syringe SC (04:49)
[2020-11-03] MEDS: Lacosamide 100 MG Tablet PO ×2 (04:50→17:18)
[2020-11-03] MEDS: Carvedilol 25 MG Tablet PO ×2 (04:50→17:15)
[2020-11-03] MEDS: Pantoprazole Sodium 40 MG Tablet PO (04:51)
[2020-11-03] MEDS: Ensure Clear 120 ML Liquid PO ×3 (04:51→21:06)
[2020-11-03] MEDS: Atorvastatin Calcium 20 MG Tablet PO (04:51)
[2020-11-03] MEDS: Senna/Docusate Sodium 1 Tablet PO (04:51)
[2020-11-03] MEDS: cloNIDine HCl 0.1 MG Tablet PO ×3 (04:51→21:06)
[2020-11-03] MEDS: Lisinopril 10 MG Tablet PO (04:51)
[2020-11-03] MEDS: Gabapentin 300 MG Capsule PO ×3 (04:51→21:06)
[2020-11-03] MEDS: Nystatin Powder 15gm Bottle 1 APPLIC TOPICAL ×2 (04:52→17:14)
[2020-11-03] MEDS: Polyethylene Glycol 3350 17 GM PACKET PO (04:52)
[2020-11-03 06:58] LABS: Absolute Lymphocyte Count 1.43 X10^3/uL (0.83-4.51); Absolute Neutrophil Count 2.5 X10^3/uL (2.0-7.7); Basophil# 0.03 X10^3/uL; Basophil% 0.6 % (0-1); Eosinophil# 0.27 X10^3/uL; Eosinophils% 5.8 % (0-5); Hematocrit 36.3 % (37-47); Hemoglobin 11.5 g/dL (12.0-15.0); Lymphocyte # 1.43 X10^3/ul (0.83-4.51); Lymphocyte % 30.6 % (19-41); Mean Corp Hgb Conc 31.7 g/dL (32-36); Mean Corpuscular Hgb 29.2 pg (27.0-32.0); Mean Corpuscular Volume 92.1 fL (81-99); Mean Platelet Vol. 10.8 fl (6.2-12.0); Monocyte# 0.46 X10^3/uL; Monocyte% 9.9 % (0-10); NRBC Flagged by Analyzer 0 % (0-5); Neutrophil # 2.47 X10^3/uL (2.7-7.7); Neutrophil % 52.9 % (47-70); Platelet Count 347 K/mm3 (150-450); RBC Distribution Width CV 14.3 % (11.6-14.6); RBC Distribution Width SD 48.2 fl (35.1-43.9); Red Blood Count 3.94 M/mm3 (4.2-5.4); White Blood Count 4.7 K/mm3 (4.4-11.0)
[2020-11-03 07:22] LABS: Anion Gap 11 (5-15); BUN 15 mg/dL (7-18); BUN/Creat Ratio 21.7 RATIO (10-20); Calcium,Total 8.4 mg/dL (8.5-10.1); Chloride 108 mmol/L (98-107); Creatinine, Serum 0.69 mg/dL (0.55-1.02); EST Glomerular Filtration Rate 88 mL/min (>60); Est Glom Filt Rate - Afr Amer 107 mL/min (>60); Estimated Creatinine Clearance 39.04 ml/min; Glucose 109 mg/dL (74-106); Potassium 3.5 mmol/L (3.5-5.1); Sodium Level 143 mmol/L (136-145)
[2020-11-03] MEDS: Aspirin 81 MG TAB.CHEW PO (08:05)
[2020-11-03] MEDS: Multivitamins,Ther W-Minerals Tablet 2 TABLET PO (08:05)
[2020-11-03] MEDS: Ondansetron ODT 4 MG Tablet PO (11:22)
[2020-11-03] MEDS: Tuberculin,Purif.prot.deriv. 50 TU/ML Vial 0.1 ML ID (11:22)
[2020-11-03] MEDS: Mag Hydrox/Al Hydrox/Simeth 30 ML UDC PO (12:24)
[2020-11-03] MEDS: Acetaminophen 500 MG Tablet 1000 MG PO ×2 (13:52→20:12)
[2020-11-03 15:48] VITALS: BP 119/38; PULSE 64; RESP 20; TEMP 36.7; O2SAT 96
[2020-11-03] MEDS: QUEtiapine 25 MG Tablet PO (21:06)
[2020-11-03] MEDS: MELATONIN 3 MG TABLET PO (21:06)
[2020-11-04 05:00] VITALS: BP 127/49; PULSE 58; RESP 16; TEMP 36.6; O2SAT 94
[2020-11-04] MEDS: Atorvastatin Calcium 20 MG Tablet PO (05:12)
[2020-11-04] MEDS: Nystatin Powder 15gm Bottle 1 APPLIC TOPICAL ×2 (05:12→17:06)
[2020-11-04] MEDS: Pantoprazole Sodium 40 MG Tablet PO (05:12)
[2020-11-04] MEDS: Gabapentin 300 MG Capsule PO ×3 (05:12→21:26)
[2020-11-04] MEDS: Senna/Docusate Sodium 1 Tablet PO ×2 (05:12→17:06)
[2020-11-04] MEDS: Lisinopril 10 MG Tablet PO (05:12)
[2020-11-04] MEDS: Lacosamide 100 MG Tablet PO ×2 (05:16→17:06)
[2020-11-04] MEDS: Enoxaparin 40 MG/0.4 ML Syringe SC (05:17)
[2020-11-04] MEDS: Carvedilol 25 MG Tablet PO ×2 (05:19→17:06)
[2020-11-04] MEDS: cloNIDine HCl 0.1 MG Tablet PO ×3 (05:19→21:26)
[2020-11-04] MEDS: Ensure Clear 120 ML Liquid PO ×4 (05:23→21:30)
[2020-11-04] MEDS: Aspirin 81 MG TAB.CHEW PO (07:47)
[2020-11-04] MEDS: Multivitamins,Ther W-Minerals Tablet 2 TABLET PO (07:47)
--- NOTE | 2020-11-04 09:11 | PCA ---
Pt was an ADL with therapy this morning. I was walking her to the bathroom when i noticed pt did not get a shower. I offered a shower to pt due to needing her hair washed pt refused the offer an said that she was not going to take a shower, i told patient that she could really benefit from getting her hair washed pt stated i am not washing my hair because it has all the gel in it from the leads that were used when she came into the hospital. I explained to pt how important it is to get the hair cleaned with the gel out of it, tried to explian how good it would feel to her. pt still refused
[2020-11-04 10:00] VITALS: PULSE 68; RESP 16; O2SAT 97
[2020-11-04] MEDS: Acetaminophen 500 MG Tablet 1000 MG PO (11:51)
[2020-11-04 14:18] VITALS: BP 104/54; PULSE 70; RESP 16; TEMP 36.8; O2SAT 92
[2020-11-04 17:08] VITALS: BP 143/51; PULSE 70
[2020-11-04] MEDS: QUEtiapine 25 MG Tablet PO (21:26)
[2020-11-04] MEDS: MELATONIN 3 MG TABLET PO (21:26)
[2020-11-05] MEDS: Pantoprazole Sodium 40 MG Tablet PO (04:51)
[2020-11-05] MEDS: Atorvastatin Calcium 20 MG Tablet PO (04:51)
[2020-11-05] MEDS: Gabapentin 300 MG Capsule PO (04:51)
[2020-11-05] MEDS: Carvedilol 25 MG Tablet PO (04:51)
[2020-11-05] MEDS: Senna/Docusate Sodium 1 Tablet PO (04:51)
[2020-11-05] MEDS: Lisinopril 10 MG Tablet PO (04:51)
[2020-11-05] MEDS: cloNIDine HCl 0.1 MG Tablet PO (04:51)
[2020-11-05] MEDS: Nystatin Powder 15gm Bottle 1 APPLIC TOPICAL (04:52)
[2020-11-05] MEDS: Lacosamide 100 MG Tablet PO (04:52)
[2020-11-05] MEDS: Ensure Clear 120 ML Liquid PO (04:56)
[2020-11-05] MEDS: Enoxaparin 40 MG/0.4 ML Syringe SC (04:56)
[2020-11-05 05:00] VITALS: BP 114/38; PULSE 71; RESP 16; TEMP 36.5; O2SAT 97
[2020-11-05] MEDS: Multivitamins,Ther W-Minerals Tablet 2 TABLET PO (08:54)
[2020-11-05] MEDS: Aspirin 81 MG TAB.CHEW PO (08:54)
[2020-11-05 10:59] VITALS: PULSE 67; RESP 18; O2SAT 96
[2020-11-05 14:31] VITALS: BP 134/41; PULSE 67; RESP 18; TEMP 36.6; O2SAT 96
--- NOTE | 2020-11-08 07:18 | MDS.RN ---
Information for the mds was obtained from review of the clinical record, interview of resident, staff, and direct observation of resident's care.
== END 2020-11-05 12:00 | DRG 690 ==
PROVIDERS: Admitting Provider Family Medicine Geriatric Medicine; Visit Provider Family Medicine Geriatric Medicine
DX: N39.0 Urinary tract infection, site not specified (principal); F13.20 Sedative, hypnotic or anxiolytic dependence, uncomplicated; F01.51 Vascular dementia, unspecified severity, with behavioral disturbance; B96.20 Unspecified Escherichia coli [E. coli] as the cause of diseases classified elsewhere; N18.31 Chronic kidney disease, stage 3a; Z23 Encounter for immunization; I12.9 Hypertensive chronic kidney disease with stage 1 through stage 4 chronic kidney disease, or unspecified chronic kidney disease; E78.5 Hyperlipidemia, unspecified; K21.9 Gastro-esophageal reflux disease without esophagitis; F12.10 Cannabis abuse, uncomplicated; Z79.899 Other long term (current) drug therapy; Z79.82 Long term (current) use of aspirin; G40.909 Epilepsy, unspecified, not intractable, without status epilepticus; E55.9 Vitamin D deficiency, unspecified; K31.84 Gastroparesis; F17.200 Nicotine dependence, unspecified, uncomplicated; E87.6 Hypokalemia
CPT/HCPCS: 36415; 80048; 82962; 85025; 87426; 92507; 92523; 97110; 97116; 97162; 97166; 97530; 97535; 97802; G0009; 90670

== ENCOUNTER 2020-10-28 07:02 | Emergency (ER) | payer MEDICARE, SELFPAY ==
[2020-10-28] VITALS (8 sets, daily range): BP systolic 95–122; BP diastolic 47–82; PULSE 54–63; RESP 14–20; TEMP 36.9; O2SAT 89–100; BMI 28.1
--- NOTE | 2020-10-28 07:09 | ED.RN ---
PT ARRIVED VIA WC FROM TCU, PT DROWSY AND PALE.
--- NOTE | 2020-10-28 07:15 | EKG12_ITS ---
Test Reason : SYNCOPE Blood Pressure : / mmHG Vent. Rate : 056 BPM Atrial Rate : 056 BPM P-R Int : 184 ms QRS Dur : 086 ms QT Int : 466 ms P-R-T Axes : 061 014 078 degrees QTc Int : 449 ms Sinus bradycardia Nonspecific ST abnormality Abnormal ECG Confirmed by JOSIAH HAWKINS, SHREYA ([id number]), senior editor MAYA HYDE ([id number]) on 10/30/2020 9:36:55 AM Referred By: MAGEN Confirmed By:SHREYA RAHMAN MD
--- NOTE | 2020-10-28 07:15 | RAD_ITS ---
STUDY: X-RAY CHEST REASON FOR EXAM: Female, 75 years old. Syncope TECHNIQUE: Single AP portable view of the chest. COMPARISON: None. FINDINGS: EKG electrodes are seen. Elevation of the right hemidiaphragm. Minimal increased linear markings at the left lung base suggestive of a mild scarring. There is no demonstrated pleural abnormality. Normal size heart. Normal mediastinum and david. Normal visualized pulmonary arteries. There is atherosclerotic calcification of the aortic arch with tortuosity. Normal visualized thoracic spine. Normal visualized ribs, clavicles, and shoulders. Surgical clips are seen in the epigastric region. RAD/Chest 1 View (Portable) IMPRESSION: No acute abnormality is seen. Electronically Signed: Remington Fontana MD at 8:47 EDT , Service support ,
--- NOTE | 2020-10-28 07:15 | CT_ITS ---
STUDY: CT BRAIN WITHOUT CONTRAST REASON FOR EXAM: Female, 75 years old. Syncope RADIATION DOSAGE (If Supplied By Facility): CTDIvol = ( 44.99 ) mGy, DLP = ( 779.24 ) mGycm TECHNIQUE: Transaxial CT imaging of the brain was performed without administration of intravenous contrast material. Individualized dose optimization techniques were used for this CT. COMPARISON: No relevant priors. FINDINGS: Normal soft tissue structures. Normal calvarium. There is evidence of encephalomalacia involving the right temporal lobe as well as the right posterior occipital lobe in keeping with old infarction. There is also evidence of focal encephalomalacia in the posterior aspect of the left parietal occipital lobe. There is mild cerebral atrophy with widening of the extra-axial spaces and ventricular dilatation. There are areas of decreased attenuation within the white matter tracts of the supratentorial brain, consistent with microvascular disease changes. Old lacunar infarct in the posterior aspect of the right thalamus. Normal brainstem. Normal cerebellum. There is no intracranial hemorrhage. There are no findings of an acute ischemic infarction. Normal visualized paranasal sinuses. CT/Brain/Head without Contrast IMPRESSION: Chronic involutional changes of the brain. Electronically Signed: Remington Fontana MD at 8:45 EDT , Service support ,
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
[2020-10-28 07:36] LABS: Bedside Glucose 138 mg/dL (70-110)
[2020-10-28 07:52] LABS: Color, Urine Yellow (Yellow); Glucose, Dipstick Normal (Normal); Ketone-Dipstick 5 mg/dl (Negative); Leukocyte Esterase-Dipstick 500 /ul (Negative); Nitrite-Dipstick Negative (Negative); Occult Blood-Urine 25 /ul (Negative); Protein-Dipstick 30 mg/dl (Negative); Specific Gravity, Urine 1.025 (1.002-1.030); Urine Clarity Sl. Cloudy (Clear); Urine Urobilinogen Normal (Normal)
[2020-10-28 07:55] LABS: Urine Bilirubin Dipstick 1 mg/dL (Negative)
[2020-10-28 07:58] LABS: Bacteria 2+ /hpf (None Seen); Mucous, Urine 2+ /hpf (<or=2+); Red Blood Cells-Urine 0-5 SEEN /hpf (0-5); Squamous Epithelial Cells - UA 0-5 SEEN /hpf (5-10); White Blood Cells 25-50 SEEN /hpf (0-5)
[2020-10-28 08:03] LABS: Absolute Lymphocyte Count 1.27 X10^3/uL (0.83-4.51); Absolute Neutrophil Count 2.7 X10^3/uL (2.0-7.7); Basophil# 0.04 X10^3/uL; Basophil% 0.8 % (0-1); Eosinophil# 0.22 X10^3/uL; Eosinophils% 4.6 % (0-5); Hemoglobin 11.3 g/dL (12.0-15.0); Lymphocyte # 1.27 X10^3/ul (0.83-4.51); Lymphocyte % 26.7 % (19-41); Mean Corp Hgb Conc 30.5 g/dL (32-36); Mean Corpuscular Hgb 29.1 pg (27.0-32.0); Mean Corpuscular Volume 95.4 fL (81-99); Mean Platelet Vol. 10.7 fl (6.2-12.0); Monocyte% 10.5 % (0-10); NRBC Flagged by Analyzer 0 % (0-5); Neutrophil # 2.71 X10^3/uL (2.7-7.7); Neutrophil % 57.2 % (47-70); POSITIVE COUNT YES; Platelet Count 276 K/mm3 (150-450); RBC Distribution Width CV 14.2 % (11.6-14.6); RBC Distribution Width SD 49.5 fl (35.1-43.9); Red Blood Count 3.88 M/mm3 (4.2-5.4); White Blood Count 4.8 K/mm3 (4.4-11.0)
--- NOTE | 2020-10-28 08:03 | NURSING ---
NO OLD EKG
[2020-10-28 08:04] LABS: Differential Indicated SCAN CRITERIA MET
[2020-10-28 08:21] LABS: International Normalized Ratio 1.2; Prothrombin Time (Protime)PT. 14.8 SECONDS (11.7-14.9)
[2020-10-28 08:29] LABS: ALB/GLOB Ratio 1.1 RATIO (0.9-2.4); AST(SGOT) 34 U/L (15-37); Alanine Aminotransfer ALT/SGPT 44 U/L (13-56); Albumin, Serum 3.2 g/dL (3.2-5.0); Alkaline Phosphatase 58 U/L (45-117); Anion Gap 11 (5-15); BUN 16 mg/dL (7-18); BUN/Creat Ratio 19.4 RATIO (10-20); Calcium,Total 8.5 mg/dL (8.5-10.1); Chloride 107 mmol/L (98-107); Creatinine, Serum 0.82 mg/dL (0.55-1.02); EST Glomerular Filtration Rate 72 mL/min (>60); Est Glom Filt Rate - Afr Amer 87 mL/min (>60); Estimated Creatinine Clearance 47.61 ml/min; Glucose 122 mg/dL (74-106); Potassium 3.9 mmol/L (3.5-5.1); Protein, Total 6.2 g/dL (6.4-8.2); Sodium Level 139 mmol/L (136-145)
[2020-10-28 08:43] LABS: Partial Thromboplast Time 24.3 Seconds (24.1-36.2)
[2020-10-28] MEDS: Cephalexin 250 MG Capsule 500 MG PO (12:59)
--- NOTE | 2020-10-28 13:26 | ED.RN ---
REPORT CALLED TO SHAVON
== END 2020-10-28 13:26 | disposition skilled nursing facility (03) ==
PROVIDERS: Emergency Provider Emergency Medicine; PCP Family Medicine
DX: R55 Syncope and collapse (principal); N39.0 Urinary tract infection, site not specified; Z87.891 Personal history of nicotine dependence
CPT/HCPCS: 36415; 70450; 71045; 80053; 81001; 82962; 84484; 85025; 85610; 85730; 93005; 99285; P9612; A4216